=== PATIENT | male | born 1985 | race Two or more races ===

== ENCOUNTER 2024-12-29 11:14 | Emergency (ER) | payer OTHER ==
[~2024-12-29] VITALS: Ht 172.7 cm; Wt 148.3 kg
[2024-12-29] MEDS ORDERED: FAMOtidine 10 MG/ML (4ML VIAL) IV ONE (12:00)
[2024-12-29] MEDS ORDERED: HYOSCYAMINE SULFATE 0.125 MG TAB.SUBL SL ONE (12:00)
[2024-12-29 12:37] LABS: BASO % 0.3 % (0.1-1.2); EOS # 0.00 (0.04-0.54); EOS % 0.0 % (0.7-7.0); LYMPH # 1.28 (1.18-3.74); LYMPH % 6.5 % (19.3-53.1); MEAN PLATELET VOLUME 10.00 fl (9.4-12.4); MONO # 2.11 (0.24-0.82); MONO % 10.7 % (4.7-12.5); NEUT # 16.08 (1.56-6.13); NEUT % 81.9 % (34.0-71.1); RED CELL DISTRIBUTION WIDTH 12.7 % (11.6-14.4)
[2024-12-29 13:21] LABS: ALT/SGPT 48.0 U/L (12-78); AST/SGOT 37.0 U/L (15-37); BILIRUBIN TOTAL 1.47 mg/dL (0.3-1.2); BUN CREA RATIO 9.0 (7.0-25.0); CREATININE SERUM 1.48 mg/dL (0.70-1.30); GFR 52.64; GLOBULINA 5.8 G/DL (2.4-3.5); GLUCOSE FASTING 131.0 mg/dL (65-100); OSMOLALITY SERUM 268.0 MOSM/KG (275-295)
[2024-12-29 13:24] LABS: COVID-19 AG NEGATIVE (NEGATIVE)
[2024-12-29] MEDS ORDERED: 0.9 % SODIUM CHLORIDE 1,000 ML IV ONE (13:45)
[2024-12-29] MEDS ORDERED: CIPROFLOXACIN IN 5 % DEXTROSE 400 MG/200 ML PIGGYBAG IV ONE (13:45)
[2024-12-29] MEDS ORDERED: ZOFRAN8 MG PO (15:24)
[2024-12-29] MEDS ORDERED: PROBIOTIC1 EAC2 PO (15:24)
[2024-12-29] MEDS ORDERED: CIPRO500 MG PO (15:24)
[2024-12-29] MEDS ORDERED: PEPCID AC20 MG PO (15:24)
[2024-12-29] MEDS ORDERED: METRONIDAZOLE500 MG PO (15:24)
[2024-12-29 15:37] LABS: BASO % 0.3 % (0.1-1.2); EOS # 0.01 (0.04-0.54); EOS % 0.1 % (0.7-7.0); LYMPH # 1.16 (1.18-3.74); LYMPH % 6.4 % (19.3-53.1); MEAN PLATELET VOLUME 10.10 fl (9.4-12.4); MONO # 2.23 (0.24-0.82); NEUT # 14.62 (1.56-6.13); NEUT % 80.3 % (34.0-71.1); RED CELL DISTRIBUTION WIDTH 12.8 % (11.6-14.4)
[2024-12-29 15:51] LABS: MONO % 12.2 % (4.7-12.5)
== END 2024-12-29 16:06 | disposition home or self-care (01) ==
LOC: ER 11:14
PROVIDERS: General Practice
DX: K52.89 Other specified noninfective gastroenteritis and colitis (principal); Z20.822 Contact with and (suspected) exposure to COVID-19; Z88.0 Allergy status to penicillin

== ENCOUNTER 2025-01-02 13:27 | Inpatient (IN) | payer OTHER ==
[~2025-01-02] VITALS: Ht 172.7 cm; Wt 145.1 kg
[~2025-01-02 13:27] MED LIST: CIPRO500 MG PO; METRONIDAZOLE500 MG PO; PEPCID AC20 MG PO; PROBIOTIC1 EAC2 PO; ZOFRAN8 MG PO
[2025-01-02] MEDS ORDERED: AMIODARONE HCL 50 MG/ML AMPUL IV ONE (14:15)
[2025-01-02] MEDS ORDERED: 0.9 % SODIUM CHLORIDE 1,000 ML IV SCH ×2 (14:15→21:45)
[2025-01-02] MEDS ORDERED: PANTOPRAZOLE SODIUM 40 MG in 0.9 % SODIUM CHLORIDE 8 ML IV PUSH STA (14:54)
[2025-01-02] MEDS ORDERED: MORPHINE SULFATE 4 MG/ML VIAL IV ONE (15:00)
[2025-01-02] MEDS ORDERED: CIPROFLOXACIN IN 5 % DEXTROSE 400 MG/200 ML PIGGYBAG IV ONE (15:00)
[2025-01-02] MEDS ORDERED: METRONIDAZOLE/SODIUM CHLORIDE 500 MG/100 ML PIGGYBACK IV ONE (15:00)
[2025-01-02 15:02] LABS: URINE APPEARANCE Clear; URINE BILIRRUBIN Negative (NEGATIVE); URINE BLOOD Negative; URINE COLOR Yellow; URINE GLUCOSE Negative (NEGATIVE); URINE KETONE Negative (NEGATIVE); URINE LEUKOCYTE Negative; URINE NITRATE Negative; URINE PROTEIN Negative (NEGATIVE); URINE UROBILINOGEN 0.2 E.U./dl
[2025-01-02 15:06] LABS: URINE BACTERIA 7.1 uL (0.0-1933)
[2025-01-02 15:06] LABS: BASO % 0.7 % (0.1-1.2); EOS # 0.04 (0.04-0.54); EOS % 0.4 % (0.7-7.0); LYMPH # 0.84 (1.18-3.74); LYMPH % 9.2 % (19.3-53.1); MEAN PLATELET VOLUME 10.40 fl (9.4-12.4); MONO # 0.76 (0.24-0.82); MONO % 8.3 % (4.7-12.5); NEUT # 7.34 (1.56-6.13); NEUT % 80.2 % (34.0-71.1); RED CELL DISTRIBUTION WIDTH 13.4 % (11.6-14.4)
[2025-01-02 15:31] LABS: BAND MAN 6.0 %; LYMPHOCYTE MAN 8.0 %; MONOCYTE MAN 5.0 %; NEUTROPHILS MAN 80.0 %
[2025-01-02 15:33] LABS: URINE CAST 0.14 uL (0.0-1.40); URINE EPITHELIAL CELLS 0.7 uL (0.0-38.8); URINE RBC 1.0 uL (0.0-20.8); URINE WBC 1.2 uL (0.0-23.2)
[2025-01-02 15:34] LABS: INR 1.33
[2025-01-02 15:39] LABS: ALT/SGPT 61.0 U/L (12-78); AST/SGOT 53.0 U/L (15-37); BILIRUBIN TOTAL 0.63 mg/dL (0.3-1.2); BILIRUBIN,CONJUGATED 0.26 mg/dL (0.0-0.2); BUN CREA RATIO 9.0 (7.0-25.0); CREATININE SERUM 1.16 mg/dL (0.70-1.30); GFR 69.73; GLOBULINA 4.6 G/DL (2.4-3.5); GLUCOSE FASTING 122.0 mg/dL (65-100); LDH 566.0 U/L (87-241); OSMOLALITY SERUM 267.0 MOSM/KG (275-295); PHOSPHOKINASE CREATININE 65.0 U/L (39-308)
[2025-01-02 16:28] VITALS: BP 130/73
[2025-01-02 16:38] VITALS: BP 130/73; O2SAT 99
[2025-01-02] MEDS ORDERED: CIPROFLOXACIN IN 5 % DEXTROSE 200 ML IV SCH (21:44)
[2025-01-02] MEDS ORDERED: MORPHINE SULFATE 2 MG/ML CARTRIDGE IV PRN (21:45)
[2025-01-02] MEDS ORDERED: ONDANSETRON HCL 4 MG in 0.9 % SODIUM CHLORIDE 50 ML IV PRN (22:30)
[2025-01-02 23:26] VITALS: BP 111/68; O2SAT 95
[2025-01-03] VITALS (8 sets, daily range): BP systolic 106–118; BP diastolic 71–79; O2SAT 90–98
[2025-01-04 00:43] VITALS: O2SAT 90
[2025-01-04 01:06] VITALS: BP 115/83; O2SAT 98
[2025-01-04 06:10] VITALS: O2SAT 90
[2025-01-04 07:46] VITALS: BP 146/84; O2SAT 94
[2025-01-04 07:49] VITALS: O2SAT 90
[2025-01-04 16:00] VITALS: BP 122/73; O2SAT 96
[2025-01-05 00:47] VITALS: BP 111/75; O2SAT 97
[2025-01-05 08:03] VITALS: BP 131/84; O2SAT 95
[2025-01-05 16:00] VITALS: BP 131/87; O2SAT 98
[2025-01-05] MEDS ORDERED: fentaNYL CITRATE 50 MCG/ML AMPUL IV PUSH ONE (21:45)
[2025-01-05] MEDS ORDERED: MIDAZOLAM HCL 2 MG/2 ML VIAL IV PUSH ONE (21:45)
[2025-01-06 02:09] VITALS: BP 163/88; O2SAT 96
[2025-01-06 08:05] VITALS: BP 136/83; O2SAT 98
[2025-01-06 16:36] LABS: BASO % 0.3 % (0.1-1.2); EOS # 0.13 (0.04-0.54); EOS % 0.9 % (0.7-7.0); LYMPH # 1.41 (1.18-3.74); LYMPH % 9.8 % (19.3-53.1); MEAN PLATELET VOLUME 10.10 fl (9.4-12.4); MONO # 1.04 (0.24-0.82); MONO % 7.2 % (4.7-12.5); NEUT # 11.58 (1.56-6.13); NEUT % 80.6 % (34.0-71.1); RED CELL DISTRIBUTION WIDTH 14.2 % (11.6-14.4)
[2025-01-06 17:07] LABS: BUN CREA RATIO 15.0 (7.0-25.0); CREATININE SERUM 0.61 mg/dL (0.70-1.30); GFR 146.4; GLUCOSE FASTING 87.0 mg/dL (65-100); OSMOLALITY SERUM 276.0 MOSM/KG (275-295)
[2025-01-06 17:30] VITALS: BP 128/84; O2SAT 98
[2025-01-07 01:04] VITALS: BP 122/78; O2SAT 99
[2025-01-07 08:00] VITALS: BP 131/82; O2SAT 97
[2025-01-07 16:00] VITALS: BP 146/88; O2SAT 95
[2025-01-08 02:31] VITALS: BP 127/78; O2SAT 98
[2025-01-08 08:34] VITALS: BP 120/79; O2SAT 95
[2025-01-08 16:34] VITALS: BP 131/86; O2SAT 97
[2025-01-09 00:12] VITALS: BP 116/73; O2SAT 98
[2025-01-09 06:39] LABS: BASO % 0.4 % (0.1-1.2); EOS # 0.15 (0.04-0.54); EOS % 1.3 % (0.7-7.0); LYMPH # 1.43 (1.18-3.74); LYMPH % 12.5 % (19.3-53.1); MEAN PLATELET VOLUME 10.10 fl (9.4-12.4); MONO # 0.79 (0.24-0.82); MONO % 6.9 % (4.7-12.5); NEUT # 8.88 (1.56-6.13); NEUT % 77.6 % (34.0-71.1); RED CELL DISTRIBUTION WIDTH 14.0 % (11.6-14.4)
[2025-01-09 07:15] LABS: BUN CREA RATIO 10.0 (7.0-25.0); CREATININE SERUM 0.63 mg/dL (0.70-1.30); GFR 141.05; GLUCOSE FASTING 93.0 mg/dL (65-100); OSMOLALITY SERUM 277.0 MOSM/KG (275-295)
[2025-01-09 08:14] VITALS: BP 131/85; O2SAT 98
[2025-01-09] MEDS ORDERED: ENOXAPARIN SODIUM 40 MG/0.4 ML SYRINGE SUBCUTANEO SCH (09:00)
[2025-01-09] MEDS ORDERED: CIPROFLOXACIN IN 5 % DEXTROSE 200 ML IV NR (10:15)
[2025-01-09] MEDS ORDERED: CEFTRIAXONE SODIUM 2,000 MG in 0.9 % SODIUM CHLORIDE 100 ML IV NR (14:30)
[2025-01-09 16:18] VITALS: BP 127/88; O2SAT 98
[2025-01-09] MEDS ORDERED: CIPROFLOXACIN IN 5 % DEXTROSE 200 ML IV SCH (21:00)
[2025-01-10 00:31] VITALS: BP 119/70; O2SAT 98
[2025-01-10 08:27] VITALS: BP 155/83; O2SAT 97
[2025-01-10 15:55] VITALS: BP 138/81; O2SAT 97
[2025-01-10] MEDS ORDERED: CEFTRIAXONE SODIUM 2,000 MG in 0.9 % SODIUM CHLORIDE 100 ML IV SCH (17:00)
[2025-01-11 00:40] VITALS: BP 123/72; O2SAT 98
[2025-01-11 08:00] VITALS: BP 137/88; O2SAT 96
[2025-01-11 15:58] VITALS: BP 125/87; O2SAT 97
[2025-01-12 00:35] VITALS: BP 119/77; O2SAT 98
[2025-01-12] MEDS ORDERED: DIATRIZOATE MEGLUMINE, SODIUM 30 ML BOTTLE PO NR (06:00)
[2025-01-12 08:14] VITALS: BP 127/81; O2SAT 96
[2025-01-12 15:41] VITALS: BP 130/82; O2SAT 96
[2025-01-13 00:19] VITALS: BP 123/72; O2SAT 98
[2025-01-13 11:16] VITALS: BP 139/86; O2SAT 95
[2025-01-13 16:30] VITALS: BP 115/84; O2SAT 96
[2025-01-14 00:40] VITALS: BP 136/90; O2SAT 98
[2025-01-14 08:00] VITALS: BP 135/90; O2SAT 95
[2025-01-14 12:35] LABS: BASO % 0.8 % (0.1-1.2); EOS # 0.12 (0.04-0.54); EOS % 1.6 % (0.7-7.0); LYMPH # 1.26 (1.18-3.74); LYMPH % 16.8 % (19.3-53.1); MEAN PLATELET VOLUME 9.90 fl (9.4-12.4); MONO # 0.61 (0.24-0.82); MONO % 8.1 % (4.7-12.5); NEUT # 5.42 (1.56-6.13); NEUT % 72.2 % (34.0-71.1); RED CELL DISTRIBUTION WIDTH 13.4 % (11.6-14.4)
[2025-01-14 12:52] LABS: BUN CREA RATIO 9.0 (7.0-25.0); CREATININE SERUM 0.55 mg/dL (0.70-1.30); GFR 164.98; GLUCOSE FASTING 92.0 mg/dL (65-100); OSMOLALITY SERUM 276.0 MOSM/KG (275-295)
[2025-01-14 16:00] VITALS: BP 121/80; O2SAT 96
[2025-01-15 01:27] VITALS: BP 122/78; O2SAT 98
[2025-01-15 08:23] VITALS: BP 150/81; O2SAT 95
[2025-01-15 16:00] VITALS: BP 126/86; O2SAT 97
[2025-01-16 02:25] VITALS: BP 126/83; O2SAT 96
[2025-01-16 08:00] VITALS: BP 135/83; O2SAT 95
[2025-01-16] MEDS ORDERED: MIDAZOLAM HCL 2 MG/2 ML VIAL IV PUSH ONE (20:45)
[2025-01-16] MEDS ORDERED: fentaNYL CITRATE 50 MCG/ML AMPUL IV PUSH ONE (20:45)
[2025-01-17 00:25] VITALS: BP 116/78; O2SAT 98
[2025-01-17 08:00] VITALS: BP 128/81; O2SAT 96
[2025-01-17 17:05] VITALS: BP 120/81; O2SAT 98
[2025-01-18 01:39] VITALS: BP 116/69; O2SAT 99
[2025-01-18 08:18] VITALS: BP 140/85; O2SAT 96
[2025-01-18 16:00] VITALS: BP 118/81; O2SAT 99
[2025-01-19 01:07] VITALS: BP 114/73; O2SAT 99
[2025-01-19 08:00] VITALS: BP 126/91; O2SAT 97
[2025-01-19 16:40] VITALS: BP 137/86; O2SAT 95
[2025-01-20 00:11] VITALS: BP 142/87; O2SAT 96
[2025-01-20 08:28] VITALS: BP 133/95; O2SAT 98
[2025-01-20 13:30] LABS: BASO % 1.4 % (0.1-1.2); EOS # 0.22 (0.04-0.54); EOS % 3.4 % (0.7-7.0); LYMPH # 1.34 (1.18-3.74); LYMPH % 20.9 % (19.3-53.1); MEAN PLATELET VOLUME 9.80 fl (9.4-12.4); MONO # 0.53 (0.24-0.82); MONO % 8.3 % (4.7-12.5); NEUT # 4.15 (1.56-6.13); NEUT % 64.8 % (34.0-71.1); RED CELL DISTRIBUTION WIDTH 13.4 % (11.6-14.4)
[2025-01-20 14:04] LABS: BUN CREA RATIO 9.0 (7.0-25.0); CREATININE SERUM 0.68 mg/dL (0.70-1.30); GFR 129.15; GLUCOSE FASTING 99.0 mg/dL (65-100); OSMOLALITY SERUM 271.0 MOSM/KG (275-295)
[2025-01-21 00:40] VITALS: BP 123/78; O2SAT 98
[2025-01-21 08:00] VITALS: BP 128/69; O2SAT 96
[2025-01-21 17:32] VITALS: BP 116/77; O2SAT 96
[2025-01-22 01:01] VITALS: BP 115/79; O2SAT 98
[2025-01-22] MEDS ORDERED: DIATRIZOATE MEGLUMINE, SODIUM 30 ML BOTTLE PO ONE (02:00)
[2025-01-22 10:38] VITALS: BP 131/88; O2SAT 95
[2025-01-22 16:00] VITALS: BP 120/75; O2SAT 99
[2025-01-23 01:19] VITALS: BP 119/79; O2SAT 100
[2025-01-23 08:46] VITALS: BP 126/85; O2SAT 96
== END 2025-01-23 13:01 | disposition home or self-care (01) | DRG 392 ==
LOC: ER 13:27 → SURH 21:53 → O/R 01-21 10:44 → SURH 01-21 10:45
PROVIDERS: General Practice; Internal Medicine; ADMIT Student in an Organized Health Care Education/Training Program; ATTEND Student in an Organized Health Care Education/Training Program
PROC: BW21ZZZ Computerized Tomography (CT Scan) of Abdomen and Pelvis (ICD-10-PCS; 2025-01-02)
PROC: B24BYZZ Ultrasonography of Heart with Aorta using Other Contrast (ICD-10-PCS; 2025-01-02)
PROC: 4A12X4Z Monitoring of Cardiac Electrical Activity, External Approach (ICD-10-PCS; 2025-01-03)
PROC: 0H97XZZ Drainage of Abdomen Skin, External Approach (ICD-10-PCS; principal; 2025-01-05)
PROC: BW21YZZ Computerized Tomography (CT Scan) of Abdomen and Pelvis using Other Contrast (ICD-10-PCS; 2025-01-12)
PROC: 0W9G3ZZ Drainage of Peritoneal Cavity, Percutaneous Approach (ICD-10-PCS; 2025-01-15)
PROC: 0W2FX0Z Change Drainage Device in Abdominal Wall, External Approach (ICD-10-PCS; 2025-01-20)
PROC: BW21YZZ Computerized Tomography (CT Scan) of Abdomen and Pelvis using Other Contrast (ICD-10-PCS; 2025-01-22)
DX: K57.32 Diverticulitis of large intestine without perforation or abscess without bleeding (principal); K63.0 Abscess of intestine; E66.01 Morbid (severe) obesity due to excess calories

== ENCOUNTER 2025-02-26 10:22 | Outpatient (CLI) | payer OTHER | END 2025-02-26 10:27 | disposition home or self-care (01) | LOC: TOM 10:22 | PROVIDERS: ATTEND Surgery | DX: K57.20 Diverticulitis of large intestine with perforation and abscess without bleeding (principal); K63.2 Fistula of intestine ==

== ENCOUNTER 2025-03-12 12:30 | Inpatient (IN) | payer OTHER ==
[~2025-03-12] VITALS: Ht 213.4 cm; Wt 140.6 kg
[2025-03-23] MEDS ORDERED: RINGERS SOLUTION,LACTATED 1,000 ML IV SCH (15:30)
[2025-03-23] MEDS ORDERED: METRONIDAZOLE/SODIUM CHLORIDE 500 MG/100 ML PIGGYBACK IV SCH (17:00)
[2025-03-23] MEDS ORDERED: ALBUTEROL SULFATE 3 ML/2.5 MG AMPUL.NEB IH SCH ×2 (18:00→21:00)
[2025-03-23] MEDS ORDERED: IPRATROPIUM BROMIDE 0.5 MG/2.5 ML AMPUL.NEB IH SCH (21:00)
[2025-03-23] MEDS ORDERED: CIPROFLOXACIN IN 5 % DEXTROSE 400 MG/200 ML PIGGYBAG IV SCH (21:00)
[2025-03-23 21:04] VITALS: BP 167/102; O2SAT 87
[2025-03-24] VITALS: BP 135/101; O2SAT 97
[2025-03-24] MEDS ORDERED: ENALAPRILAT DIHYDRATE 1.25 MG/ML VIAL IV PRN (06:30)
[2025-03-24] MEDS ORDERED: ACETAMINOPHEN 325 MG TABLET PO PRN (06:30)
[2025-03-24] MEDS ORDERED: ONDANSETRON HCL 4 MG in DEXTROSE 5 % IN WATER 50 ML IV PRN (06:30)
[2025-03-24 08:33] VITALS: BP 152/54; O2SAT 96
[2025-03-24] MEDS ORDERED: LACTOBACILLUS ACIDOPHILUS 1 CAP CAP PO SCH (09:00)
[2025-03-24 16:52] VITALS: BP 146/83; O2SAT 97
[2025-03-24] MEDS ORDERED: IPRATROPIUM/ALBUTEROL SULFATE 3 ML AMPUL.NEB IH SCH (17:30)
[2025-03-25] MEDS ORDERED: IPRATROPIUM BROMIDE 0.5 MG/2.5 ML AMPUL.NEB IH SCH (01:00)
[2025-03-25] MEDS ORDERED: ALBUTEROL SULFATE 3 ML/2.5 MG AMPUL.NEB IH SCH (01:00)
[2025-03-25 02:25] VITALS: BP 138/73; O2SAT 99
[2025-03-25 08:00] VITALS: BP 146/83; O2SAT 99
[2025-03-25 10:39] LABS: BASO % 0.5 % (0.1-1.2); EOS # 0.08 (0.04-0.54); EOS % 1.4 % (0.7-7.0); LYMPH # 1.84 (1.18-3.74); LYMPH % 32.5 % (19.3-53.1); MEAN PLATELET VOLUME 10.10 fl (9.4-12.4); MONO # 0.47 (0.24-0.82); MONO % 8.3 % (4.7-12.5); NEUT # 3.24 (1.56-6.13); NEUT % 57.1 % (34.0-71.1); RED CELL DISTRIBUTION WIDTH 12.7 % (11.6-14.4)
[2025-03-25 11:00] LABS: INR 1.01
[2025-03-25 11:34] LABS: BUN CREA RATIO 13.0 (7.0-25.0); CREATININE SERUM 0.62 mg/dL (0.70-1.30); GFR 143.68; GLUCOSE FASTING 80.0 mg/dL (65-100); OSMOLALITY SERUM 280.0 MOSM/KG (275-295)
[2025-03-25 16:00] VITALS: BP 143/72; O2SAT 97
[2025-03-25] MEDS ORDERED: MAGNESIUM CITRATE 296 ML BOTTLE PO ONE (17:00)
[2025-03-25] MEDS ORDERED: IPRATROPIUM/ALBUTEROL SULFATE 3 ML AMPUL.NEB IH ONE (18:28)
[2025-03-25] MEDS ORDERED: IPRATROPIUM/ALBUTEROL SULFATE 3 ML AMPUL.NEB IH SCH (21:00)
[2025-03-26 00:53] VITALS: BP 128/77; O2SAT 98
[2025-03-26 07:30] VITALS: BP 134/73; O2SAT 98
[2025-03-26] MEDS ORDERED: PANTOPRAZOLE SODIUM 40 MG in 0.9 % SODIUM CHLORIDE 8 ML IV PUSH NR (11:00)
[2025-03-26] MEDS ORDERED: GUAIFENESIN 200 MG/10 ML BLIST.PACK PO SCH (12:00)
[2025-03-26] MEDS ORDERED: levoFLOXacin IN DEXTROSE 5 % 5 MG/ML PIGGYBAG IV ONE (13:26)
[2025-03-26] MEDS ORDERED: METRONIDAZOLE/SODIUM CHLORIDE 500 MG/100 ML PIGGYBACK IV ONE (13:26)
[2025-03-26] MEDS ORDERED: BUPIVACAINE HCL/MPF 0.5% 30ML VIAL ONE (13:29)
[2025-03-26] MEDS ORDERED: LIDOCAINE HCL 1%/EPINEPHRINE 20ML VIAL IJ ONE (13:29)
[2025-03-26] MEDS ORDERED: SUGAMMADEX SODIUM 200 MG/2 ML VIAL IV ONE (18:33)
[2025-03-26] MEDS ORDERED: ONDANSETRON HCL 2 MG/ML VIAL IV PRN (19:15)
[2025-03-26] MEDS ORDERED: MORPHINE SULFATE 4 MG/ML CARTRIDGE IV PRN (19:15)
[2025-03-26] MEDS ORDERED: OxyCODONE HCL 5 MG TABLET (ROXICODONE) PO PRN (19:15)
[2025-03-26] MEDS ORDERED: ACETAMINOPHEN 500 MG GEL..CAP PO SCH (20:00)
[2025-03-26 20:46] LABS: BASO % 0.1 % (0.1-1.2); EOS # 0.01 (0.04-0.54); EOS % 0.1 % (0.7-7.0); LYMPH # 0.91 (1.18-3.74); LYMPH % 6.7 % (19.3-53.1); MEAN PLATELET VOLUME 10.00 fl (9.4-12.4); MONO # 0.67 (0.24-0.82); MONO % 4.9 % (4.7-12.5); NEUT # 11.98 (1.56-6.13); NEUT % 87.8 % (34.0-71.1); RED CELL DISTRIBUTION WIDTH 12.4 % (11.6-14.4)
[2025-03-26] MEDS ORDERED: FAMOTIDINE/PF 20 MG/2 ML VIAL IV PUSH SCH (21:00)
[2025-03-26] MEDS ORDERED: SIMETHICONE 125 MG CAPSULE PO SCH (21:00)
[2025-03-26 21:24] VITALS: BP 149/89; O2SAT 97
[2025-03-27] MEDS ORDERED: METOCLOPRAMIDE HCL 5 MG/ML VIAL IV SCH (01:00)
[2025-03-27] MEDS ORDERED: GABAPENTIN 300 MG CAPSULE PO SCH (01:00)
[2025-03-27 01:27] VITALS: BP 146/81; O2SAT 96
[2025-03-27 07:38] LABS: BASO % 0.2 % (0.1-1.2); EOS # 0.00 (0.04-0.54); EOS % 0.0 % (0.7-7.0); LYMPH # 0.72 (1.18-3.74); LYMPH % 6.6 % (19.3-53.1); MEAN PLATELET VOLUME 10.00 fl (9.4-12.4); MONO # 0.61 (0.24-0.82); MONO % 5.6 % (4.7-12.5); NEUT # 9.45 (1.56-6.13); NEUT % 87.2 % (34.0-71.1); RED CELL DISTRIBUTION WIDTH 12.1 % (11.6-14.4)
[2025-03-27 07:56] LABS: BUN CREA RATIO 11.0 (7.0-25.0); CREATININE SERUM 0.57 mg/dL (0.70-1.30); GFR 158.32; GLUCOSE FASTING 99.0 mg/dL (65-100); OSMOLALITY SERUM 273.0 MOSM/KG (275-295)
[2025-03-27 08:40] VITALS: BP 158/109; O2SAT 95
[2025-03-27] MEDS ORDERED: HYOSCYAMINE SULFATE 0.125 MG TAB.SUBL SL SCH (09:00)
[2025-03-27] MEDS ORDERED: LACTOBACILLUS ACIDOPHILUS 1 CAP CAP PO SCH (09:00)
[2025-03-27] MEDS ORDERED: PANTOPRAZOLE SODIUM 40 MG in 0.9 % SODIUM CHLORIDE 8 ML IV PUSH SCH (09:00)
[2025-03-27] MEDS ORDERED: ENOXAPARIN SODIUM 40 MG/0.4 ML SYRINGE SUBCUTANEO SCH (17:00)
[2025-03-27 17:35] VITALS: BP 172/93; O2SAT 95
[2025-03-28 00:30] VITALS: BP 128/74; O2SAT 98
[2025-03-28 08:00] VITALS: BP 147/94; O2SAT 98
[2025-03-28] MEDS ORDERED: ENOXAPARIN SODIUM 40 MG/0.4 ML SYRINGE SUBCUTANEO SCH (09:00)
[2025-03-29] VITALS: BP 130/80; O2SAT 96
[2025-03-29 08:00] VITALS: BP 100/65; O2SAT 98
[2025-03-29 16:00] VITALS: BP 150/72; O2SAT 97
[2025-03-30 00:30] VITALS: BP 113/74; O2SAT 96
[2025-03-30 08:00] VITALS: BP 133/81; O2SAT 98
[2025-03-30] MEDS ORDERED: INTESTINEX680 M1 PO (09:20)
[2025-03-30] MEDS ORDERED: AMOX-CLAV 875-1 EACH PO (09:20)
[2025-03-30] MEDS ORDERED: LEVSIN/SL0.125 MG SL (09:20)
[2025-03-30] MEDS ORDERED: PROTONIX40 MG PO (09:20)
== END 2025-03-30 12:43 | disposition home or self-care (01) | DRG 330 ==
LOC: SURG 03-23 11:00 → O/R 03-23 11:00 → SURH 03-23 12:30 → SURG 03-23 17:01
PROVIDERS: ADMIT Surgery; ATTEND Surgery
PROC: 3E0F7GC Introduction of Other Therapeutic Substance into Respiratory Tract, Via Natural or Artificial Opening (ICD-10-PCS; 2025-03-25)
PROC: 0DBP4ZZ Excision of Rectum, Percutaneous Endoscopic Approach (ICD-10-PCS; 2025-03-26)
PROC: 0DT84ZZ Resection of Small Intestine, Percutaneous Endoscopic Approach (ICD-10-PCS; 2025-03-26)
PROC: 0DQE4ZZ Repair Large Intestine, Percutaneous Endoscopic Approach (ICD-10-PCS; 2025-03-26)
PROC: 0DBU4ZZ Excision of Omentum, Percutaneous Endoscopic Approach (ICD-10-PCS; 2025-03-26)
PROC: 0DJD8ZZ Inspection of Lower Intestinal Tract, Via Natural or Artificial Opening Endoscopic (ICD-10-PCS; 2025-03-26)
PROC: 0DTN4ZZ Resection of Sigmoid Colon, Percutaneous Endoscopic Approach (ICD-10-PCS; principal; 2025-03-26 14:30)
DX: K57.20 Diverticulitis of large intestine with perforation and abscess without bleeding (principal); K57.00 Diverticulitis of small intestine with perforation and abscess without bleeding; K63.2 Fistula of intestine; Z68.42 Body mass index [BMI] 45.0-49.9, adult; K57.30 Diverticulosis of large intestine without perforation or abscess without bleeding; R10.13 Epigastric pain; R19.7 Diarrhea, unspecified; R00.0 Tachycardia, unspecified; E66.01 Morbid (severe) obesity due to excess calories; K57.32 Diverticulitis of large intestine without perforation or abscess without bleeding; Z87.891 Personal history of nicotine dependence; E66.813 Obesity, class 3; J45.909 Unspecified asthma, uncomplicated